=== PATIENT | female | born 1990 | race Caucasian/White ===

== ENCOUNTER 2024-12-20 12:43 | Emergency (ER) | payer BC ==
[2024-12-20] MEDS: Ibuprofen 200 MG Tab PO ONE (13:05)
== END 2024-12-20 13:37 | disposition home or self-care (01) ==
LOC: VM.ED 12:43
DX: B34.9 Viral infection, unspecified (principal); Z79.899 Other long term (current) drug therapy
CPT/HCPCS: 87428-QW; 87651-QW; 99283; 99284; A9270-GY

== ENCOUNTER 2025-01-20 08:59 | Emergency (ER) | payer BC | END 2025-01-20 09:57 | disposition home or self-care (01) | LOC: VM.ED 08:59 | DX: J02.8 Acute pharyngitis due to other specified organisms (principal); Z79.51 Long term (current) use of inhaled steroids; Z79.52 Long term (current) use of systemic steroids; Z79.899 Other long term (current) drug therapy | CPT/HCPCS: 87428-QW; 87651-QW; 99283 ==